=== PATIENT | male | born 1985 | race Caucasian/White ===

== ENCOUNTER 2021-06-19 18:31 | Emergency (ER) | payer BC ==
[2021-06-19 18:57] VITALS: BP 119/71; PULSE 72; TEMP 98; BMI 31.3
[2021-06-19] MEDS ORDERED: CLINDAMYCIN 600MG PREMIX IVPB 600 MG/50 ML BAG IVPB ONE ×2 (19:52→20:11)
[2021-06-19 20:46] LABS: BASO % 0.6 % (0-2.0); EOS % 2.8 % (0-4.5); HEMATOCRIT 41.6 % (35.4-49); LYMPH % 30.5 % (8-40); MCH 28.8 pg (25.7-33.7); MCHC 33.6 g/dl (32.0-35.9); MEAN CELL VOLUME 85.6 fl (80-96); MEAN PLT VOLUME 10.5 fl (7.5-11.1); MONO % 9.9 % (3.8-10.2); NEUT % 56.2 % (42.8-82.8); PLATELET COUNT 126 10^3/uL (134-434); RBC 4.85 M/mm3 (4.00-5.60); RDW 13.2 % (11.9-15.9); WHITE BLOOD COUNT 5.9 K/mm3 (4.0-10.0)
[2021-06-19 20:58] LABS: CALCIUM 8.8 mg/dL (8.5-10.1)
[2021-06-19 20:59] LABS: ALBUMIN 3.7 g/dl (3.4-5.0); BLOOD UREA NITROGEN 13.8 mg/dL (7-18)
[2021-06-19 21:02] LABS: CREATININE 1.1 mg/dL (0.55-1.3)
[2021-06-19 21:04] LABS: BILIRUBIN,TOTAL 0.3 mg/dL (0.2-1)
== END 2021-06-19 22:49 | disposition home or self-care (01) ==
LOC: JER 18:31
PROC: 3E033GC Introduction of Other Therapeutic Substance into Peripheral Vein, Percutaneous Approach (ICD-10-PCS; principal; 2021-06-19)
DX: L02.01 Cutaneous abscess of face (principal)
CPT/HCPCS: 36415; 70491-TC; 80053; 85025; 99285-25; Q9967